=== PATIENT | female | born 1960 | race Caucasian/White ===

== ENCOUNTER 2025-06-12 10:18 | Emergency (ER) | payer BC, SELFPAY ==
[2025-06-12 10:24] VITALS: BP 136/93
[2025-06-12 10:58] LABS: Hematocrit 40.5 % (37.0-47.0); Hemoglobin 13.9 g/dL (12.0-16.0); Mean Corp Hgb Conc. 34.3 g/dL (33.0-37.0); Mean Corpuscular Volume 96.0 fL (81.0-99.0); Nucleated Red Blood Cells % 0 %; Platelet Count 362 10^3/uL (130-400); Red Cell Dist. Width 12.2 % (11.5-14.5)
[2025-06-12 11:12] LABS: ALT (SGPT) 15 U/L (0-35); AST (SGOT) 21 U/L (14-36); Albumin 4.1 g/dl (3.5-5.0); Alkaline Phosphatase 66 U/L (38-126); Blood Urea Nitrogen 14 mg/dl (7-17); Calcium 9.0 mg/dl (8.4-10.2); Carbon Dioxide 32 mmol/L (22-30); Chloride 102 mmol/L (98-107); Glucose 76 mg/dl (70-99); Potassium 4.3 mmol/L (3.5-5.1); Sodium 136 mmol/L (135-145); Total Protein 6.9 g/dl (6.3-8.2); eGFR > 60.00
[2025-06-12 11:23] LABS: Troponin I 0.017 ng/ml
[2025-06-12 11:41] VITALS: BMI 26.3
--- NOTE | 2025-06-12 12:42 | ED.GENMED ---
History of Present Illness
General
Chief Complaint: Chest Pain
Source: patient
Time Seen by Provider: 06/12/25 12:31
History of Present Illness
History of Present Illness:
This patient is a 64-year-old female who notes that she was sitting in the car traveling back from having Thanksgiving dinner when she developed discomfort across the front of her chest radiating up to her neck and lower jaw bilaterally. This was
not associated with diaphoresis, nausea, vomiting, dyspnea, back pain, dizziness, abdominal pain, or other complaints. The symptoms gradually resolved over a period of approximately 2 hours. She describes the pain as 'heartburn-like' also
described as 'burning'. It was not pleuritic in nature. Patient is asymptomatic since this event at 7 PM last night but when she called her physician today symptoms she was referred to the ER.
Past History
Past History
ED Past Medical History: Hypercholesterolemia
ED Past Surgical History: Tonsilectomy
Social History
Tobacco: Non-smoker
Alcohol: Occasional
Drug: None
Personal:
Living: with family
Phy Exam
Physical Exam
Physical Exam:
GENERAL: Alert , in no apparent distress
EYE: pupils equal and reactive
NECK: Supple, no significant adenopathy.
ENT: o/p clr, mmm.
CARDIAC: Regular rate and rhythm .
LUNGS: Clear breath sounds bilaterally, no acute respiratory distress, no wheezes/rales/rhonchi
ABDOMEN: Soft, without focal tenderness, no r/g, no cvat
NEUROLOGICAL: Alert and oriented, no focal neuro deficits
SKIN: Warm and dry, skin intact.
MUSCULOSKELETAL: No edema, well perfused.
PSYCH: Normal and appropriate interaction.
Scores
Heart Score for Chest Pain Patients
STEMI patient?: Not applicable
Course
Orders/Labs/Results
Orders:
Orders
06/12/25 10:29
Electrocardiogram (*1) Urgent
Reason for Study: Chest Pain
EKG- Treatment ONCE
06/12/25 10:47
Complete Blood Count/With Diff Urgent
Comprehensive Metabolic Panel Urgent
Troponin I Urgent
06/12/25 12:40
Aspirin 325 mg PO NOW STA
06/12/25 12:42
CR Chest - 2 Views Urgent
Comment:
Reason For Exam: cp
06/12/25 12:54
Troponin I Urgent
Abnormal Lab Results
06/12/25
10:47
MCH 32.9 H pg
(27.0-31.0)
Carbon Dioxide 32 H mmol/L
(22-30)
06/12/25 10:47
06/12/25 10:47
Vital Signs
Initial and Last Documented VS:
Initial Vital Signs
Temp Pulse Resp BP Pulse Ox
98.4 F 86 16 136/93 98
06/12/25 10:24 06/12/25 10:24 06/12/25 10:24 06/12/25 10:24 06/12/25 10:24
Last Documented Vital Signs
Temp Pulse Resp BP Pulse Ox
98.4 F 76 18 136/93 98
06/12/25 10:24 06/12/25 11:39 06/12/25 12:00 06/12/25 10:24 06/12/25 12:44
*Pulse Oximetry
SaO2: 98
Oxygen Mode of Delivery: Room air
Patient hypoxic: no
*Critical Care Note
Total Time (30-74mins, 75-104mins- exclusive of procedures): Not Applicable
Update Note
Update Note:
Patient presents to the Emergency Department with ___chest pain
Number and Complexity of Problems Addressed at the Encounter
� Chronic conditions affecting care:
� Acute Exacerbation and/or Progression of Chronic Illness:
� Differential Diagnosis includes: But not limited to pericarditis, ACS, pneumothorax, muscular pain, reflux, etc.
Amount and/or Complexity of Data to be Reviewed and Analyzed
� I performed an independent evaluation of and my interpretation is:
EKG: Read by me, normal sinus rhythm, normal rate, normal axis, no acute ischemia
CT:
Xrays: Read by radiology NAD
Laboratory Studies: Troponin unremarkable x 2
Other:
� Review of other/old records reveals:
� Clinical information was obtained by an independent historian:
� Prescriptions/Medications Considered but not given:
� Further testing considered but not performed:
Risk of Complications and/or Morbidity or Mortality of Patient Management
� Social determinants of health affecting care:
� Discussion with other providers (PCP, Hospitalists, Consultants, etc):
� Escalation of care including admission/observation vs risk of discharge considered: Patient remains asymptomatic here will discharge with close follow-up discussed with patient importance of follow-up and reasons return to the
ER.
ED Attending Note
-
Portions of this chart may have been created with voice recognition software.� Occasional wrong word or��sound alike� substitutions may have occurred due to the inherent limitations of voice recognition software.
Discharge Plan
Departure
Patient Disposition: Home (Routine Discharge)
Date of Disposition: 06/12/25
Time of Disposition: 14:19
Patient with high blood pressure during this ER visit?: Yes
Condition: Good
Discharge Problem:
Chest pain
Instructions: Chest Pain CBC Follow Up
Referrals:
UNKNOWN - PT NOT,INTERVIEWE [Family Provider]
Activity Restrictions/Additional Instructions:
IF YOU DEVELOP RECURRENT/NEW/PERSISTENT PAIN, ANY TROUBLE BREATHING, VOMITING, DIZZINESS, SWELLING, OR OTHER WORRISOME SIGNS, GO TO THE ER IMMEDIATELY!
Interventions
Interventions:
*Risk Screen - Suicide Last Done: 06/12/25 10:24
*General Assessment Last Done: 06/12/25 11:42
*Neglect/Abuse Screening Last Done: 06/12/25 11:43
*ED- Fall Risk Assessment Last Done: 06/12/25 11:42
*ED COVID-19 Vaccine History Last Done: 06/12/25 11:42
*ED Influenza Vaccine History Last Done: 06/12/25 11:42
*Nursing Disposition Last Done: 06/12/25 14:20
ED- Cardiac Assessment Last Done: 06/12/25 11:43
Discharge Date and Time
Print Language: GEORGIAN
[2025-06-12] MEDS: ASPIRIN 325 MG PO (12:49)
[2025-06-12 13:35] LABS: Troponin I 0.014 ng/ml
== END 2025-06-12 14:44 | disposition home or self-care (01) ==
LOC: EMR 10:18
PROVIDERS: Student in an Organized Health Care Education/Training Program; EMERGENCY PHYSICIAN Emergency Medicine
DX: R07.89 Other chest pain (principal); E78.00 Pure hypercholesterolemia, unspecified
CPT/HCPCS: 99283; 71046; 80053; 84484; 85025; 93005